=== PATIENT | female | born 1985 | race Caucasian/White ===

== ENCOUNTER 2023-11-18 14:32 | Emergency (ER) | payer BC, SELFPAY ==
[2023-11-18 14:57] VITALS: BP 113/74; PULSE 76; RESP 16; TEMP 36.9; O2SAT 99
--- NOTE | 2023-11-18 15:10 | ED.URI ---
HPI - URI/Sore Throat General Chief Complaint: Upper Respiratory Infection Stated Complaint: SINUS PAIN/COLD SYMPTOMS Time Seen by Provider: 11/18/23 15:13 Source: patient and RN notes reviewed Mode of arrival: ambulatory Limitations: no limitations History of Present Illness HPI Narrative: 38-year-old female presents with concern for 3 week history of sinus pain, nasal congestion. Reports she has been having pain on her right cheek. She reports she has tried Flonase without relief. MD elicited complaint: nasal congestion and sinus pain Related Data Home Medications Medication Instructions Recorded Confirmed levonorgestrel-ethinyl estradiol tablet 11/18/23 0.1 mg-20 mcg tablet (Vienva) sertraline 100 mg tablet mg 11/18/23 Allergies Allergy/AdvReac Type Severity Reaction Status Date / Time No Known Allergies Allergy Verified 11/18/23 14:55 Review of Systems Review of Systems: CONSTITUTIONAL: Denies malaise, chills, sweats, or fever. EYES: Denies visual changes, redness, or discharge. ENT: Reports rhinorrhea, congestion, sinus pain CARDIOVASCULAR: Denies chest pain, palpitations, or edema. RESPIRATORY: Reports cough. Denies dyspnea. GASTROINTESTINAL: Denies abdominal pain, nausea, vomiting, diarrhea SKIN: Denies rash or itching. MUSCULOSKELETAL: Denies myalgia. NEUROLOGIC: Denies headache. All systems reviewed & are unremarkable except as noted in HPI and below PMFSH Comments At time of signature, agree with nursing past medical, surgical, social and family history. There is no relevant family history pertinent to the presenting complaint Exam Narrative: GENERAL: Well-appearing, well-nourished, and in no acute distress. HEAD: Normocephalic EYES: PERRLA, conjunctivae clear ENT: Nares clear, turbinates edematous and erythematous. Mucous membranes moist. TM pearly bustillos with dull light reflex bilaterally; no tragal tenderness. Oropharynx not erythematous without lesions. Tonsils not enlarged and without exudate, no drooling, no hoarseness, no trismus, uvula midline. NECK: Supple. No lymphadenopathy CHEST: Clear to auscultation, breath sounds equal. No wheezing, rhonchi, rales, or stridor. No respiratory distress, speaks in full sentences. HEART: Regular rate and rhythm. No murmur heard. SKIN: Warm, dry, no rash. NEURO: Alert and oriented x3. PSYCH: Normal mood and affect Course Course Emergency Course: Patient is aware of diagnosis, understands and agrees to treatment plan. Anticipatory guidance given. Patient agrees to follow-up as directed and is aware of reasons to seek care at the emergency department. Portions of this record may have been created with voice recognition software Level of Care: Express Care Visit Vital Signs Vital signs: Vital Signs Temperature 98.5 F 11/18/23 14:57 Pulse Rate 76 11/18/23 14:57 Respiratory Rate 16 11/18/23 14:57 Blood Pressure 113/74 11/18/23 14:57 Pulse Oximetry 99 11/18/23 14:57 Temperature 98.5 F 11/18/23 14:57 Pulse Rate 76 11/18/23 14:57 Respiratory Rate 16 11/18/23 14:57 Blood Pressure 113/74 11/18/23 14:57 Pulse Oximetry 99 11/18/23 14:57 Reviewed. MDM - URI/Sore Throat MDM Narrative Medical decision making narrative: Differential diagnosis considered: White virus, strep pharyngitis, allergic rhinitis, upper respiratory tract infection, sinusitis, rhinosinusitis, nasopharyngitis. viral pharyngitis, otitis media, otitis externa, pneumonia, bronchitis, viral cough syndrome, viral syndrome, and influenza. Exam findings show no acute concerns or changes; patient is non-toxic appearing and is in no distress. Patient is appropriate for outpatient treatment and follow-up. Lab Data Attestation: I reviewed the patient's lab results. Critical Care Time Critical Care Time Critical Care Time: No Discharge Plan Discharge Clinical Impression: Acute bacterial sinusitis Patient Disposition: Home, Self-Care
--- NOTE | 2023-11-18 16:32 | PC.NURSE ---
Nursing notes by Shauna Reed were entered in error; wrong pick of nurse when assignment picked.
== END 2023-11-18 15:37 | disposition home or self-care (01) ==
PROVIDERS: Emergency Provider Nurse Practitioner
DX: J01.90 Acute sinusitis, unspecified (principal)
CPT/HCPCS: 99213; G0463

== ENCOUNTER 2023-12-21 19:09 | Emergency (ER) | payer BC, SELFPAY ==
--- NOTE | ~2023-12-21 | CT_ITS ---
EXAMINATION: CT brain wo con INDICATION: Migraine headache COMPARISON: None TECHNIQUE: Standard unenhanced head CT. The dose-length product (DLP) was 605.33 mGy-cm. The mA was a djusted according to patient size. Iterative reconstruction technique was employed. FINDINGS: No intracranial hemorrhage, acute infarction, or abnormal mass lesion. The ventricles are n ormal. No abnormal mass effect or midline shift. The bustillos-white matter differentiation is normal. The basal cisterns are patent. The orbits are normal. The paranasal sinuses, mastoids and calvarium are normal. IMPRESSION: 1. No acute intracranial abnormality. Reviewed, dictated and finalized at location F. ICE MANAGER
--- NOTE | ~2023-12-21 | CT_ITS ---
EXAMINATION: CTA brain carotid DATE: 12/21/2023 20:22 INDICATION: Migraine headache, difficulty finding words, left-sided facial droop TECHNIQUE: Computed tomographic angiography (CTA) of the head was performed with 100 mL Omnipaque-350 intravenous contrast. CTA of the neck was performed with intravenous contrast. The dose-length produ ct was 1024.73 mGy-cm. Maximum intensity projection and volume rendered 3D-reconstructions were creat ed by the technologist on a separate workstation. Automated exposure control and iterative reconstruc tion technique were employed. COMPARISON: Noncontrast CT from today FINDINGS: HEAD CTA: There is no intracranial hemorrhage, acute infarction, or abnormal mass lesion. The ventric les are normal. There is no abnormal mass effect or midline shift. The bustillos-white matter differentiat ion is normal. The basal cisterns are patent. The orbits are normal. The paranasal sinuses, mastoids and calvarium are normal. There is no significant stenosis of the basilar artery or posterior cerebral arteries. There is no si gnificant stenosis of the intracranial internal carotid arteries or the anterior or middle cerebral a rteries. The anterior communicating artery and posterior communicating arteries are normal. There is no aneurysm. NECK CTA: The thyroid gland is unremarkable. The submandibular and parotid glands are symmetric. Ther e is no lymphadenopathy. There are no masses identified. The airway is unremarkable. The superior med iastinum is unremarkable. There are no osseous abnormalities. There is 0% stenosis of the proximal right internal carotid artery relative to normal distal artery l umen diameter (NASCET criteria). There is 0% stenosis of the proximal left internal carotid artery re lative to normal distal artery lumen diameter. There is a short segment dissection of the right inter nal carotid artery. IMPRESSION: 1. 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 2. 0% stenosis of the proximal right internal carotid artery relative to normal distal artery lumen d iameter (NASCET criteria). 3. 0% stenosis of the proximal left internal carotid artery relative to normal distal artery lumen di ameter. 4. No acute intracranial abnormality. These findings were discussed with Jenny Garcia in the Emergency Department at 2045 hours on 4. Reviewed, dictated and finalized at location F. LINE WORKER IMPRESSION: 1. 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 2. 0% stenosis of the proximal right internal carotid artery relative to normal distal artery lumen diameter (NASCET criteria). 3. 0% stenosis of the proximal left internal carotid artery relative to normal distal artery lumen diameter. 4. No acute intracranial abnormality. These findings were discussed with Jenny Garcia in the Emergency Department at 2045 hours on 12/21/2023.
[2023-12-21 19:12] VITALS: BP 141/92; PULSE 82; RESP 15; TEMP 36.5; O2SAT 100
--- NOTE | 2023-12-21 19:20 | PC.NURSE ---
This nurse spoke with special agent in charge and erp to clarify if this patient needed to be called a code stroke. erp verbalized that due to the uncertainty of the time frame early afternoon to around 3pm and the fact that she would not be able to get down to ct before the 4.5 hour denice, it was ok to put her into the next available room and not do a code stroke.
--- NOTE | 2023-12-21 19:20 | ECG_ITS ---
Measurements Intervals [place] Rate: 70 P: 74 AK: 148 QRS: 47 QRSD: 81 T: 54 QT: 385 QTc: 416 Interpretive Statements SINUS RHYTHM BASELINE ARTIFACT- I, II, III, AVR, AVL, AVF NORMAL ECG NO PREVIOUS ECG AVAILABLE FOR COMPARISON Electronically Signed On 12-22-2023 6:33:51 AUTOMOTIVE SERVICE CONSULTANT by Chandu Delatorre D.O.
[2023-12-21 19:52] LABS: Basophils Percent Auto 0.5 % (0.2-1.2); Eosinophils Absolute Auto 0.1 K/mm3 (0-0.3); Eosinophils Percent Auto 1.8 % (0-4.4); Hematocrit 40.8 % (37.0-47.0); Hemoglobin 12.8 g/dL (12.0-15.0); Immature Granulocyte Absolute 0.01 K/mm3 (0.00-0.031); Immature Granulocyte Percent A 0.1 % (0-0.5); Lymphocytes Absolute Auto 3.33 K/mm3 (0.9-3.2); Lymphocytes Percent Auto 42.9 % (18.3-44.2); Mean Corpuscular HGB Conc 31.4 g/dl (32-36); Mean Corpuscular Hemoglobin 28.6 pg (26-34); Mean Corpuscular Volume 91.3 fl (80-100); Mean Platelet Volume 10.6 fl (7.4-10.4); Monocytes Absolute Auto 0.4 K/mm3 (0.1-0.6); Monocytes Percent Auto 5.3 % (2.6-8.5); Neutrophils Absolute Auto 3.8 K/mm3 (1.3-6.7); Neutrophils Percent Auto 49.4 % (45.5-73.1); Platelet Count Result 231 k/mm3 (150-375); Red Blood Count 4.47 M/mm3 (4.2-5.4); Red Cell Distribution Width 12.9 % (11.5-14.5); White Blood Count 7.8 K/mm3 (4.5-10.0)
[2023-12-21 20:01] LABS: Alanine Aminotransferase 16 U/L (6-35); Albumin Level 4.6 g/dL (3.5-5.1); Alkaline Phosphatase 58 U/L (38-126); Anion Gap 6 mmol/L (8-16); Aspartate Amino Transferase 27 U/L (14-36); Bilirubin,Total 0.4 mg/dL (0.2-1.3); Blood Urea Nitrogen 19 mg/dL (7-17); Calcium 9.5 mg/dL (8.4-10.2); Carbon Dioxide 27 mmol/L (22-30); Chloride 104 mmol/L (98-107); Estimated CRCL calculation 92 ml/min; Estimated Glomerular Filt Rate > 60; Glucose 105 mg/dL (65-110); Sodium 137 mmol/L (137-145)
[2023-12-21 20:02] LABS: Prothrombin Time 13.1 Seconds (11.1-14.7)
[2023-12-21 20:12] LABS: Troponin I < 0.012 ng/mL (0.000-0.034)
[2023-12-21 20:45] VITALS: BP 115/62; PULSE 64; RESP 16; TEMP 36.6; O2SAT 100
[2023-12-21 20:50] VITALS: BP 115/62; PULSE 68; RESP 16; O2SAT 98
--- NOTE | 2023-12-21 21:01 | ED.NEUROSD ---
HPI - Neuro Symptoms/Deficit General Chief Complaint: Neuro Symptoms/Deficit Stated Complaint: cant find words, migraine mendoza since early afternoon Time Seen by Provider: 12/21/23 20:40 Source: patient Mode of arrival: ambulatory Limitations: no limitations History of Present Illness HPI Narrative: This is a 38-year-old female that presents to the emergency department for a migraine headache. Reports around 4:00 to have trouble finding words. She then developed a headache. She did take some ibuprofen with improvement in her pain. Her thought that she had some left-sided facial droop. Her neurologic symptoms have resolved. She does report history of migraines. Denies current vision changes, vomiting, numbness, weakness. Related Data Home Medications Medication Instructions Recorded Confirmed levonorgestrel-ethinyl estradiol 1 tablet PO DAILY 11/18/23 11/18/23 0.1 mg-20 mcg tablet (Vienva) sertraline 100 mg tablet 100 mg PO DAILY 11/18/23 11/18/23 Allergies Allergy/AdvReac Type Severity Reaction Status Date / Time No Known Allergies Allergy Verified 11/18/23 14:55 Review of Systems Review of Systems: CONSTITUTIONAL: Denies fever EYES: Denies visual changes GASTROINTESTINAL: Denies vomiting NEUROLOGIC: Reports headache. Denies numbness, or weakness. All systems reviewed & are unremarkable except as noted in HPI and below PMFSH Past Medical History Medical History (Updated 12/23/23 @ 00:00 by Maribell Young) History of anxiety Social History Social History (Updated 12/21/23 @ 21:02 by Jenny Garcia PA-C) Smoking status: Never smoker Exam Narrative: GENERAL: Well-appearing, well-nourished, and in no acute distress. HEAD: Normocephalic, atraumatic. EYES: PERRLA and EOMI. ENT: Nares clear, no rhinorrhea or epistaxis. Mucous membranes moist. Oropharynx without tonsillar hypertrophy exudate or other lesions. Bilateral TMs pearly bustillos non-bulging NECK: Supple. No adenopathy or masses. CHEST: Clear to auscultation. No respiratory distress. No wheezes rales or rhonchi HEART: Regular rate and rhythm. No murmur heard. Normal peripheral pulses. EXTREMITIES: Normal range of motion. No edema. Strength equal in bilateral upper and lower extremities (5/5) SKIN: Warm, dry, no rash. NEURO: No focal deficits. Alert and oriented x3. Cranial nerves 2-12 grossly intact PSYCH: Normal mood and affect Course Course Emergency Course: Patient updated on her workup and need for transfer for higher level of care. She prefers [facility] Consultation #1: Spoke with [facility]. Dr. Milton accepts patient as transfer. Recommends starting 325mg aspirin Date: 12/21/23 Vital Signs Vital signs: Vital Signs Temperature 97.7 F 12/21/23 19:12 Pulse Rate 82 12/21/23 19:12 Respiratory Rate 15 12/21/23 19:12 Blood Pressure 141/92 H 12/21/23 19:12 Pulse Oximetry 100 12/21/23 19:12 Oxygen Delivery Room Air 12/21/23 19:12 Temperature 98 F 12/21/23 20:45 Pulse Rate 66 12/22/23 05:29 Respiratory Rate 18 12/22/23 05:29 Blood Pressure 119/67 12/22/23 05:29 Pulse Oximetry 99 12/22/23 05:29 Oxygen Delivery Room Air 12/21/23 19:12 MDM - Neuro Symptoms/Deficit MDM Narrative Medical decision making narrative: Patient presents to the emergency department for a migraine headache associated with aphasia and facial droop which has resolved. Her vitals are stable. She is currently neurologically intact. CBC and metabolic panel without concerning findings. CT brain without acute intracranial abnormality. 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 Patient updated on her workup and need for transfer for higher level of care. She prefers [facility]. Spoke with [facility]. Dr. Milton accepts patient as transfer. Recommends starting 325mg aspirin. She will be a direct admit Differential Diagnosis Differentia
[2023-12-21] MEDS: ASPIRIN 325 MG TABLET PO (21:52)
[2023-12-21 22:01] VITALS: PULSE 79
[2023-12-21 22:14] VITALS: BP 110/68; PULSE 64; RESP 16; O2SAT 99
--- NOTE | 2023-12-21 22:42 | PC.NURSE ---
Patient's daughter stated that her lower abdomen seems to be bloated/distended. Patient had active bowel sounds and abdomen was soft round tender to touch. Notified EDP Dr. Tirado who VRBO a bladder scan.
[2023-12-21 23:02] VITALS: BP 115/67; PULSE 60; RESP 18; O2SAT 99
[2023-12-22] VITALS: BP 88/46; PULSE 66; RESP 16; O2SAT 98
[2023-12-22 00:18] LABS: Glucose Point of Care 130 mg/dl (65-105)
[2023-12-22] MEDS: SODIUM CHLORIDE 0.9% IV 1,000 ML 999 ML IV CONT (00:29)
[2023-12-22 01:17] VITALS: BP 107/60; PULSE 55; RESP 17; O2SAT 98
[2023-12-22 01:30] VITALS: BP 107/60; PULSE 65; RESP 15; O2SAT 99
[2023-12-22 05:29] VITALS: BP 119/67; PULSE 66; RESP 18; O2SAT 99
== END 2023-12-22 05:55 | disposition short-term general hospital (02) ==
PROVIDERS: Emergency Medicine; Emergency Provider Physician Assistant
DX: I77.71 Dissection of carotid artery (principal); F41.9 Anxiety disorder, unspecified
CPT/HCPCS: 36415; 70450; 70496; 70498; 80053; 82948; 84484; 85025; 85610; 85730; 93005; 96360; 99285; A9270; J7030; Q9967

== ENCOUNTER 2024-07-02 14:46 | Outpatient (CLI) | payer BC, SELFPAY ==
--- NOTE | ~2024-07-02 | MM_ITS ---
EXAMINATION: MM screening tena BI w adriana HISTORY: Screening mammogram TECHNIQUE: Craniocaudal and mediolateral oblique 3-D tomosynthesis images were obtained and synthetic 2-D images were generated. CAD analysis was submitted and interpreted. COMPARISON: No prior mammogram is available for comparison at this institution. BREAST PARENCHYMAL COMPOSITION:Dense: The breasts are extremely dense, which lowers the sensitivity o f mammography. FINDINGS: No suspicious mass, calcification, or architectural distortion are identified in either laura ast to suggest malignancy. There has been no suspicious interval change. IMPRESSION: No mammographic evidence of malignancy. Recommend routine screening mammography in one year. BI-RADS Category 1: Negative Reviewed, dictated and finalized at location .
== END 2024-07-02 14:47 | disposition home or self-care (01) ==
LOC: ANHIMG 14:49
PROVIDERS: Visit Provider Obstetrics & Gynecology
DX: Z12.31 Encounter for screening mammogram for malignant neoplasm of breast (principal)
CPT/HCPCS: 77063; 77067

== ENCOUNTER 2024-09-09 14:32 | Emergency (ER) | payer BC, SELFPAY ==
--- NOTE | 2024-09-09 14:33 | ED_ITS ---
HPI - URI/Sore Throat General Chief Complaint: Upper Respiratory Infection Stated Complaint: Sinus Infection Symptoms Time Seen by Provider: 09/09/24 14:33 Source: patient Mode of arrival: ambulatory Limitations: no limitations History of Present Illness HPI Narrative: Carolyne is a 39-year-old female patient presenting to the clinic today with complaints of right-sided maxillary pain and dental pain. She reports symptoms started 5-6 days ago. No known fever or chills. Is blowing out some green nasal drainage. Thought at 1st she may have a dental infection but she is quite certain that she may have a sinus infection. MD elicited complaint: sore throat and nasal congestion Related Data Home Medications Medication Instructions Recorded Confirmed levonorgestrel-ethinyl estradiol 1 tablet PO DAILY 11/18/23 09/09/24 0.1 mg-20 mcg tablet (Vienva) sertraline 100 mg tablet 100 mg PO DAILY 11/18/23 09/09/24 Allergies Allergy/AdvReac Type Severity Reaction Status Date / Time No Known Allergies Allergy Verified 09/09/24 14:38 Review of Systems Review of Systems: Pertinent positives per HPI. Patient denies any fever, chills, rash, headache, visual changes, dizziness, cough, shortness of breath, chest pain, palpitations, nausea, vomiting, diarrhea, constipation, abdominal pain, or any urinary issues. [facility] Past Medical History Medical History (Updated 09/09/24 @ 14:50 by Minh Mcgill APRN) History of anxiety Social History Social History Smoking status: Never smoker Comments At the time of my signature, I reviewed and agree with the nursing past medical, surgical, social, and family history. There is no relevant family history pertinent to the patient complaint. Exam Narrative: General: Well-developed, well nourished, in no apparent distress Head: Normocephalic, atraumatic Eyes: Pupils equally round and reactive to light bilaterally, EOM intact, sclera and conjunctive clear, no discharge, lids normal Ears: TMs intact and clear, ear canals clear, no drainage, grossly hearing normal. Nose: Nares patent, no discharge, no inflammation, right maxillary sinus tenderness. Mouth: Oral pharynx without lesions or masses, good dentition, tenderness to palpation over the right upper 3, 4, and 5 teeth. MMM. Neck: Supple, trachea midline, no enlargement of anterior or posterior cervical nodes, no thyroid masses or goiter palpable. Cardio: Regular rate and rhythm, s1 and s2 normal, no murmur appreciated. Resp: Clear to auscultation bilaterally, no rhonchi, rales, wheezing or rubs Course Course Emergency Course: Portions of this record may have been created with voice recognition software. Level of Care: Express Care Visit Vital Signs Vital signs: Vital Signs Temperature 36.2 C L 09/09/24 14:36 Pulse Rate 77 09/09/24 14:36 Respiratory Rate 16 09/09/24 14:36 Blood Pressure 104/61 09/09/24 14:36 Pulse Oximetry 99 09/09/24 14:36 Oxygen Delivery Room Air 09/09/24 14:36 Temperature 36.2 C L 09/09/24 14:36 Pulse Rate 77 09/09/24 14:36 Respiratory Rate 16 09/09/24 14:36 Blood Pressure 104/61 09/09/24 14:36 Pulse Oximetry 99 09/09/24 14:36 Oxygen Delivery Room Air 09/09/24 14:36 Vital signs reviewed MDM - URI/Sore Throat MDM Narrative Medical decision making narrative: At the time of visit patient is resting comfortably on the exam table. Patient appears to be nontoxic. Plan: I suspect patient has acute maxillary sinusitis with dental pain. Prescription for prednisone Augmentin was sent pharmacy. Supportive measures were discussed with the patient and they voiced understanding discharge instructions and agrees to treatment plan. Return precautions reviewed Differential Diagnosis Differential diagnosis: Likely upper respiratory infection, otitis media, sinu sitis, viral infection, bronchitis, influenza, pharyngitis and other Discharge Plan Discharge Clinical Impression: Tooth ache Sinusitis Qualifiers: Sinusitis location: maxillary Chronicity: acute Recurrence: non-recurrent Qualified Code(s): J01.00 - Acute maxillary sinusitis, unspecified Patient Disposition: Home, Self-Care Condition: Stable Instructions: Antibiotic Form, Sinusitis (ED), Toothache (ED) Additional Instructions: Take prescription medications only as prescribed-prednisone and Augmentin Increase fluids and stay well hydrated Tylenol/motrin for pain/fever Flonase and OTC antihistamines as directed Vicks vapor rub to open sinuses Sinus rinses for congestion Cepacol spray, cough drops, throat lozenges, warm tea with honey/lemon, gargle salt water to soothe throat BRAT diet for diarrhea Clear liquids x 24 hours then advance as tolerated for nausea/vomiting Go to the ED if you develop a worsening in your condition- high fever not controlled by Tylenol or Motrin, dehydration, weakness, lethargy, shortness of breath, or chest pain. Follow up with your PCP in 3-5 days if symptoms persist. Prescriptions: New amoxicillin-pot clavulanate 875-125 mg tablet 1 tablet PO Q12H 10 Days Qty: 20 0RF prednisone 20 mg tablet 40 mg PO DAILY 5 Days Qty: 10 0RF No Action levonorgestrel-ethinyl estrad [Vienva] 0.1-20 mg-mcg tablet 1 tablet PO DAILY sertraline 100 mg tablet 100 mg PO DAILY Follow-up/Referrals: UNKNOWN,DOCTOR [Non-Staff] - Time of Disposition: 14:44 Quality NIHSS Nursing Documentation ED NIHSS nursing documentation: reviewed/agree
[2024-09-09 14:36] VITALS: BP 104/61; PULSE 77; RESP 16; TEMP 36.2; O2SAT 99
== END 2024-09-09 14:47 | disposition home or self-care (01) ==
PROVIDERS: Emergency Provider Nurse Practitioner Family
DX: K08.89 Other specified disorders of teeth and supporting structures (principal); J01.00 Acute maxillary sinusitis, unspecified; F41.9 Anxiety disorder, unspecified
CPT/HCPCS: 99213; G0463

== ENCOUNTER 2024-09-28 12:24 | Emergency (ER) | payer BC, SELFPAY ==
[2024-09-28 12:36] VITALS: BP 109/67; PULSE 84; RESP 16; TEMP 36.6; O2SAT 98
--- NOTE | 2024-09-28 12:37 | ED.URI ---
HPI - URI/Sore Throat General Chief Complaint: Upper Respiratory Infection Stated Complaint: Sore Throat Time Seen by Provider: 09/28/24 12:45 History of Present Illness HPI Narrative: 39-year-old female presented for complaint of sore throat x 5 days. Reports history of tonsillectomy, left regrew and is red. Also reports left swollen lymph node. Denies cough, sob, wheezing, n/v/d/f/c. states she gets strep often, and usually has a false negative. Related Data Home Medications Medication Instructions Recorded Confirmed sertraline 100 mg tablet 100 mg PO DAILY 11/18/23 09/28/24 Allergies Allergy/AdvReac Type Severity Reaction Status Date / Time No Known Allergies Allergy Verified 09/28/24 12:42 Review of Systems Review of Systems: CONSTITUTIONAL: Denies body aches, fever, chills, or sweats. EYES: Denies visual changes, redness, or discharge. ENT: Reports sore throat Denies rhinorrhea, congestion, or otalgia. CARDIOVASCULAR: Denies chest pain, palpitations, or edema. RESPIRATORY: Denies dyspnea. GASTROINTESTINAL: Denies abdominal pain, nausea, vomiting, or diarrhea. SKIN: Denies rash MUSCULOSKELETAL: Denies back pain, joint pain, or myalgia. NEUROLOGIC: Denies headache PMFSH Past Medical History Medical History History of anxiety Social History Social History Smoking status: Never smoker Exam Narrative: GENERAL: mildly Ill-appearing, no acute distress. EYES: conjunctivae clear ENT: Mucous membranes moist. TM pearly bustillos with normal light reflex bilaterally; no tragal tenderness. Oropharynx erythematous without lesions. Tonsils absent, erythematous to left soft palate, and without exudate. No drooling, no hoarseness, no trismus, uvula midline. No tripod positioning, hot potato voice, or soft palate swelling. NECK: Supple. bilateral anterior cervical lymphadenopathy CHEST: Clear to auscultation, breath sounds equal. No respiratory distress, speaks in full sentences. HEART: Regular rate and rhythm. No murmur heard. SKIN: Warm, dry, no rash. NEURO: Alert and oriented x3. Course Course Emergency Course: Patient is aware of diagnosis, understands and agrees to treatment plan. Anticipatory guidance given. Patient agrees to follow-up as directed and is aware of reasons to seek care at the emergency department. Portions of this record may have been created with voice recognition software Level of Care: Express Care Visit Vital Signs Vital signs: Vital Signs Temperature 97.8 F 09/28/24 12:36 Pulse Rate 84 09/28/24 12:36 Respiratory Rate 16 09/28/24 12:36 Blood Pressure 109/67 09/28/24 12:36 Pulse Oximetry 98 09/28/24 12:36 Temperature 97.8 F 09/28/24 12:36 Pulse Rate 84 09/28/24 12:36 Respiratory Rate 16 09/28/24 12:36 Blood Pressure 109/67 09/28/24 12:36 Pulse Oximetry 98 09/28/24 12:36 MDM - URI/Sore Throat MDM Narrative Medical decision making narrative: Neg strep result reviewed with pt. will treat based on pe and cc. Advise supportive treatments. Patient is appropriate for outpatient treatment and follow-up. Differential Diagnosis Differential diagnosis: Likely upper respiratory infection, viral infection and pharyngitis Discharge Plan Discharge Clinical Impression: Pharyngitis Patient Disposition: Home, Self-Care Condition: Stable Instructions: Antibiotic Form, Pharyngitis (ED) Additional Instructions: - Take the antibiotic as directed. Fever and sore throat typically resolve within one to three days. Most patients can return to work, after 12 to 24 hours of antibiotic therapy, provided you are fever free and otherwise well. -Eat and drink things that are easy to swallow, like soft foods, cool liquids, tea with honey, or popsicles . -Salt water gargles and/or may use topical anesthetic ( Chloraseptic spray) or lozenges to relieve dryness or throat pain -Alternate Tylenol and ibuprofen as needed for pain and fever as directed. -Frequent hand washing or hand counter weigher is one of the best ways to prevent spread of infection. Throw away the toothbrush after 24hours of antibiotic. -Follow up with primary care provider in 2-3 days if condition is not improving -Go to the ER if you have trouble breathing, cannot drink enough fluids, have muffled voice or drooling, difficulty opening your mouth, or severe swelling. Prescriptions: New amoxicillin 500 mg tablet 1,000 mg PO DAILY 10 Days Qty: 20 0RF No Action sertraline 100 mg tablet 100 mg PO DAILY Follow-up/Referrals: PHYSICIAN,AMBULATORY ANALYST [Primary Care Provider] - Time of Disposition: 12:50
[2024-09-28 12:44] LABS: EDSTREPNEGPOS1 Negative (Negative)
== END 2024-09-28 12:53 | disposition home or self-care (01) ==
PROVIDERS: Emergency Provider Nurse Practitioner Family
DX: J02.9 Acute pharyngitis, unspecified (principal); F41.9 Anxiety disorder, unspecified
CPT/HCPCS: 87081; 87880; 99213; G0463

== ENCOUNTER 2025-01-13 15:54 | Outpatient (CLI) | payer BC, SELFPAY ==
--- NOTE | ~2025-01-13 | US_ITS ---
EXAMINATION: US thyroid DATE: 01/13/2025 16:07 INDICATION: Graves' disease TECHNIQUE: Multiple ultrasound images of the thyroid were obtained. COMPARISON: None. FINDINGS: The right thyroid lobe measures 5.3 x 1.8 x 1.6 cm. The left thyroid lobe measures 4.5 x 1.5 x 1.4 c m. The thyroid isthmus measures 4 mm in thickness. No discrete nodules identified. There is a mildly coarsened echotexture and mild increased vascular flow on color Doppler throughout the thyroid. IMPRESSION: 1. Coarsened echotexture and mild increased vascular flow on color Doppler throughout the thyroid, gracy kaminski related to reported history of Graves' disease. No thyroid nodules. Reviewed, dictated and finalized at location B. IMPRESSION: 1. Coarsened echotexture and mild increased vascular flow on color Doppler thro ughout the thyroid, likely related to reported history of Graves' disease. No t hyroid nodules.
== END 2025-01-13 15:55 | disposition home or self-care (01) ==
LOC: GOSHIMG 15:55
PROVIDERS: PCP Family Medicine; Visit Provider Family Medicine
DX: R09.89 Other specified symptoms and signs involving the circulatory and respiratory systems (principal); Z86.39 Personal history of other endocrine, nutritional and metabolic disease
CPT/HCPCS: 76536